=== PATIENT | female | born 1980 | race Hispanic/Latino ===

== ENCOUNTER 2018-10-25 12:35 | Emergency (ER) | payer OTHER, SELFPAY ==
--- NOTE | 2018-10-25 13:08 | RAD ---
RIGHT HAND 3 VIEWS: HISTORY: FOOSH, fall, right hand pain FINDINGS: No fracture-dislocation is seen.
== END 2018-10-25 13:52 | disposition home or self-care (01) ==
LOC: SCSER 12:35
DX: S60.221A Contusion of right hand, initial encounter (principal); S80.01XA Contusion of right knee, initial encounter; W10.9XXA Fall (on) (from) unspecified stairs and steps, initial encounter